=== PATIENT | female | born 1995 | race Caucasian/White ===

== ENCOUNTER 2016-12-27 01:41 | Emergency (ER) | payer SELFPAY ==
[~2016-12-27] VITALS: Ht 149.9 cm; Wt 69.5 kg
[2016-12-27 01:44] VITALS: Ht 149.9 cm; Wt 69.5 kg
[2016-12-28] MEDS ORDERED: PRENAT PO (20:14)
[2016-12-28] MEDS ORDERED: FERR134T PO (20:14)
== END 2016-12-27 01:56 | disposition left against medical advice (07) ==
LOC: E/R 01:41
DX: Z53.21 Procedure and treatment not carried out due to patient leaving prior to being seen by health care provider (principal)

== ENCOUNTER 2016-12-27 02:05 | Outpatient (CLI) | payer OTHER ==
[~2016-12-27] VITALS: Ht 149.9 cm; Wt 69.2 kg
--- NOTE | 2016-12-27 02:26 | PN ---
Date/Time of Note Date/Time of Note DATE: 12/27/16 TIME: 02:17 OB Subjective Subjective Subjective 21 yo P0 @ 33 wks, presents w swelling and elevated BP (she was told this in clinic) and SOB good FM, no VB, no LOF, no ctx OB Objective Objective Objective VS: BP 147/90, 98 Abdomen- gravid, n/t SVE- deferred FHT- 130's; cat I [place]- no ctx Abdomen: WNL Heart Rate: 130's Accelerations: Accelerations Present Decelerations: No Decelerations Contractions on Admission: None OB Assessment/Plan Other Assessment: 21 yo P0 @ 33 wks, r/o PIH Other plan: continue to monitor BP's send PIH labs pulse ox to evaluate SOB, although patient stated this resolved ALIYAH GALLAGHER MD December 27, 2016 02:26
[2016-12-27 02:45] VITALS: Ht 149.9 cm; Wt 69.2 kg
[2016-12-27 02:48] LABS: ADD SCAN DIFF NO
[2016-12-27 02:51] LABS: BASOPHILS % 0.2 % (0.0-2.0); EOSINOPHILS # 0.3 10^3/ul (0.0-0.5); EOSINOPHILS % 3.1 % (0.0-7.0); HEMATOCRIT 33.4 % (37.0-47.0); HEMOGLOBIN 10.5 g/dl (12.0-16.0); LYMPHOCYTES # 2.5 10^3/ul (0.8-2.9); LYMPHOCYTES % 29.8 % (18.0-55.0); MEAN CORPUSCULAR HGB CONC 31.4 g/dl (32.0-37.0); MEAN CORPUSCULAR VOLUME 79.5 fl (72.0-104.0); MEAN PLATELET VOLUME 11.6 fl (7.4-10.4); MONOCYTE # 0.7 10^3/ul (0.3-0.9); MONOCYTES % 8.3 % (0.0-13.0); NEUTROPHIL # 4.9 10^3/ul (1.6-7.5); NEUTROPHILS % 58.1 % (30.0-74.0); PLATELET COUNT 220 10^3/UL (140-415); RED CELL DISTRIBUTION WIDTH 13.8 % (11.5-14.5); WHITE BLOOD COUNT 8.5 10^3/ul (4.8-10.8)
[2016-12-27 02:58] LABS: ADD UMIC YES; URINE BILIRUBIN (Dip) NEGATIVE (NEGATIVE); URINE BLOOD (Dip) 1+ (NEGATIVE); URINE COLOR LT. YELLOW (YELLOW); URINE GLUCOSE (Dip) NEGATIVE (NEGATIVE); URINE KETONES (Dip) NEGATIVE (NEGATIVE); URINE LEUKOCYTE ESTERASE (Dip) TRACE (NEGATIVE); URINE NITRITE (Dip) NEGATIVE (NEGATIVE); URINE TOTAL PROTEIN (Dip) 4+ (NEGATIVE); URINE UROBILINOGEN (Dip) 0.2 E.U./dL (0.1-1.0)
[2016-12-27 03:09] LABS: BACTERIA,URINE FEW; SQUAMOUS EPITHELIAL CELL,UR MANY
[2016-12-27 03:14] LABS: ALBUMIN 2.7 g/dl (3.3-4.9)
[2016-12-27 03:15] LABS: POTASSIUM 3.8 mmol/L (3.5-5.1)
[2016-12-27 03:17] LABS: ALBUMIN/GLOBULIN RATIO 0.84; BILIRUBIN,INDIRECT 0.2 mg/dl (0-1.1); BILIRUBIN,TOTAL 0.2 mg/dl (0.2-1.3); CREATININE 0.57 mg/dl (0.44-1.00); TOTAL PROTEIN 5.9 g/dl (6.1-8.1)
[2016-12-27 03:18] LABS: CALCIUM 8.4 mg/dl (8.4-10.2); INR 1.15; PROTIME 14.7 Sec (12.2-14.2); PT RATIO 1.1; URIC ACID 5.4 mg/dl (3.1-7.9)
[2016-12-27 03:19] LABS: PARTIAL THROMBOPLASTIN TIME 29.7 Sec (25.0-35.0)
--- NOTE | 2016-12-27 04:36 | TRIAGE ---
OB Triage Datetime Report Generated by CPN: 12/27/2016 04:35 Datetime: 12/27/2016 04:22 Stage of : OB Triage Datetime: 12/27/2016 04:11 Stage of : OB Triage Datetime: 12/27/2016 04:00 Labor Evaluation Frequency: NONE Monitor Mode: External Duration (sec)2399: NONE Pattern: Normal: <= 5 Contractions in 10 Minutes Heart Rate FHR Baseline Rate: 135 Monitor Mode: External US FHR Baseline Changes: No Baseline Change Variability: Moderate 6-25 bpm Decelerations: None Category: Category I Datetime: 12/27/2016 03:12 Vaginal Exam Membrane Status: Intact Datetime: 12/27/2016 03:00 Labor Evaluation Frequency: NONE Monitor Mode: External Duration (sec)2399: NONE Pattern: Normal: <= 5 Contractions in 10 Minutes Heart Rate FHR Baseline Rate: 145 Monitor Mode: External US FHR Baseline Changes: No Baseline Change Variability: Moderate 6-25 bpm Accelerations: 10X10 Category: Category I Datetime: 12/27/2016 02:49 Assessment Type: Triage EGA: 33.1 Maternal Assessment Level of Consciousness: Fully Conscious Headache: Denies Blurred Vision: No Respiratory Effort: Unlabored; Regular Rhythm; Equal Expansion Breath Sounds, Left: Clear and Equal Breath Sounds, Right: Clear and Equal Nausea/Vomiting: Denies RUQ Epigastric Pain: Denies Lower Extremities Edema: Bilateral Lower Extremities Degree: 2+ Upper Extremities Edema: None Facial Edema: 1+ (Annotations: PT. ALSO RECOGNIZES THAT SHE HAS FACIAL SWELLING) Fall Risk Assessment History of Falling: (0) No Secondary Diagnosis: (0) No Ambulatory Aid: (0) Bedrest/Nurse Assist IV Therapy: (0) No Gait: (0) Normal/Bedrest/Immobile Mental Status: (0) Oriented to Own Ability Fall Score: 0 Fall Risk Score Definition: No Risk: No action required Datetime: 12/27/2016 02:48 Time of Arrival: 12/27/2016 02:00 Arrived By: Wheelchair Arrived From: Home Chief Complaint: SOB X3DAYS FACIAL SWELLING Movement: Present Contractions: Denies/Absent Rupture of Membranes: Denies Vaginal Bleeding: None Vaginal Discharge: Denies Recent Sexual Intercouse: Denies Abdominal Trauma: Not Applicable Patient Complaints: Facial Edema; Pain on Urination; Shortness of Breath Additional Patient Complaints: PAIN WITH URINATION Time Provider Notified: 12/27/2016 02:14 Provider Notified: AILEEN Initial Plan: EFM, CALL OB, LABS Datetime: 12/27/2016 02:14 Stage of : OB Triage
[2016-12-28] MEDS ORDERED: PRENAT PO (20:14)
[2016-12-28] MEDS ORDERED: FERR134T PO (20:14)
== END 2016-12-27 04:35 | disposition home or self-care (01) ==
LOC: OBT 02:05 → L-D 02:05 → OBT 04:35
PROVIDERS: ATTEND Obstetrics & Gynecology
DX: O26.893 Other specified pregnancy related conditions, third trimester (principal); R03.0 Elevated blood-pressure reading, without diagnosis of hypertension; R60.9 Edema, unspecified; R06.02 Shortness of breath; Z3A.33 33 weeks gestation of pregnancy
CPT/HCPCS: 36415; 80053; 81001; 84560; 85025; 85384; 85610; 85730; Z7500; 81003; G0463

== ENCOUNTER 2016-12-27 12:27 | Outpatient (CLI) | payer OTHER ==
[~2016-12-27] VITALS: Ht 149.9 cm; Wt 68.9 kg
--- NOTE | 2016-12-27 13:07 | RADRPT ---
PROCEDURE: US OB biophysical profile. CLINICAL INDICATION: Hypertension TECHNIQUE: Multiple sonographic images of the pelvis were obtained. The images were reviewed on a PACS workstation. COMPARISON: None FINDINGS: Presentation: Cephalic Cardiac activity is present with 161 beats per minute. The placenta is posterior grade 1. MVP: 4.74 cm Amniotic fluid index: 14 cm Biophysical profile: movement 2/2 tone 2/2. breathing 2/2 JEAN CLAUDE 2/2 Total 03/25 IMPRESSION: 1. Normal biophysical profile. RPTAT:AAJJ . Physician Gillian Date Time Electronically viewed and signed by Physician Gillian on 12/27/2016 13:06 /
[2016-12-27 13:43] LABS: ADD SCAN DIFF NO
[2016-12-27 13:47] LABS: BASOPHILS % 0.1 % (0.0-2.0); EOSINOPHILS # 0.1 10^3/ul (0.0-0.5); EOSINOPHILS % 0.7 % (0.0-7.0); HEMOGLOBIN 9.7 g/dl (12.0-16.0); LYMPHOCYTES # 1.4 10^3/ul (0.8-2.9); LYMPHOCYTES % 16.6 % (18.0-55.0); MEAN CORPUSCULAR HEMOGLOBIN 24.7 pg (29.0-33.0); MEAN CORPUSCULAR HGB CONC 31.3 g/dl (32.0-37.0); MEAN CORPUSCULAR VOLUME 78.9 fl (72.0-104.0); MEAN PLATELET VOLUME 11.7 fl (7.4-10.4); MONOCYTE # 0.6 10^3/ul (0.3-0.9); MONOCYTES % 6.6 % (0.0-13.0); NEUTROPHIL # 6.3 10^3/ul (1.6-7.5); NEUTROPHILS % 75.4 % (30.0-74.0); PLATELET COUNT 207 10^3/UL (140-415); RED BLOOD COUNT 3.93 10^6/ul (4.20-5.40); RED CELL DISTRIBUTION WIDTH 13.9 % (11.5-14.5); WHITE BLOOD COUNT 8.3 10^3/ul (4.8-10.8)
[2016-12-27 13:58] LABS: ALBUMIN 2.5 g/dl (3.3-4.9)
[2016-12-27 13:59] LABS: POTASSIUM 3.8 mmol/L (3.5-5.1)
[2016-12-27 14:01] LABS: ALBUMIN/GLOBULIN RATIO 0.86; BILIRUBIN,INDIRECT 0.2 mg/dl (0-1.1); BILIRUBIN,TOTAL 0.2 mg/dl (0.2-1.3); CREATININE 0.55 mg/dl (0.44-1.00); INR 1.15; PROTIME 14.7 Sec (12.2-14.2); PT RATIO 1.1; TOTAL PROTEIN 5.4 g/dl (6.1-8.1)
[2016-12-27 14:02] LABS: CALCIUM 8.3 mg/dl (8.4-10.2); PARTIAL THROMBOPLASTIN TIME 30.2 Sec (25.0-35.0); URIC ACID 5.9 mg/dl (3.1-7.9)
[2016-12-27 14:11] LABS: URINE BLOOD (Dip) POC 2+ (NEGATIVE)
--- NOTE | 2016-12-27 14:20 | CONS ---
Date/Time of Note Date/Time of Note DATE: 12/27/16 TIME: 14:17 Assessment/Plan Assessment/Plan Additional Assessment/Plan 21 y/o at 33w 1d with elevated BPs and pih symptoms -serial BPs -pih labs -f/u results -consider restarting 24 hour urine Consultation Date/Type/Reason Admit Date/Time Reason for Consultation High BPs Hx of Present Illness 21 y/o at 33w 1d sent from clinic for elevated BPs to systolic of 150s per patient. Also reports visual changes and midepigastric pain earlier today that resolved. Denies any HAs. Patient already instructed to do 24 hour urine from clinic, but did not bring container with her. Denies LOF, VB, UCs, dysuria. + FM. Per HPI. Other systems negative. Past Medical History Medical History: no pertinent history Past Surgical History Past Surgical Hx: no surgical history Social History Denies habits. Exam/Review of Systems Exam Gen: NAD HEENT: NCAT CV: RRR Pulm: CTAB Abd: gravid, NT Back: no CVAT Ext: NT FHT: reactive [place]: no UCs Results Result Diagram: 12/27/16 1320 12/27/16 1320 Results 24 hrs Laboratory Tests Test 12/27/16 13:20 12/27/16 14:13 White Blood Count 8.3 Red Blood Count 3.93 L Hemoglobin 9.7 L Hematocrit 31.0 L Mean Corpuscular Volume 78.9 Mean Corpuscular Hemoglobin 24.7 L Mean Corpuscular Hemoglobin Concent 31.3 L Red Cell Distribution Width 13.9 Platelet Count 207 Mean Platelet Volume 11.7 H Neutrophils % 75.4 H Lymphocytes % 16.6 L Monocytes % 6.6 Eosinophils % 0.7 Basophils % 0.1 Nucleated Red Blood Cells % 0.0 Neutrophils # 6.3 Lymphocytes # 1.4 Monocytes # 0.6 Eosinophils # 0.1 Basophils # 0.0 Nucleated Red Blood Cells # 0.0 Prothrombin Time 14.7 H Prothrombin Time Ratio 1.1 INR International Normalized Ratio 1.15 Activated Partial Thromboplast Time 30.2 Fibrinogen 370.0 Plasma Fibrin Degradation Products Pending Sodium Level 137 Potassium Level 3.8 Chloride Level 109 Carbon Dioxide Level 21 Anion Gap 11 Blood Urea Nitrogen 11 Creatinine 0.55 Glucose Level 100 Uric Acid 5.9 Calcium Level 8.3 L Total Bilirubin 0.2 Direct Bilirubin 0.00 Indirect Bilirubin 0.2 Aspartate Amino Transf (AST/SGOT) 18 Alanine Aminotransferase (ALT/SGPT) 25 Alkaline Phosphatase 112 Total Protein 5.4 L Albumin 2.5 L Globulin 2.90 Albumin/Globulin Ratio 0.86 Bedside Urine pH (LAB) 6.0 Bedside Urine Protein (LAB) 3+ H Bedside Urine Glucose (UA) Negative Bedside Urine Ketones (LAB) 1+ H Bedside Urine Blood 2+ H Bedside Urine Nitrite (LAB) Negative Bedside Urine Leukocyte Esterase (L Negative IBIS GARCIA December 27, 2016 14:20
[2016-12-27 14:25] VITALS: BP 123/68; PULSE 70; RESP 24; Ht 149.9 cm; Wt 68.9 kg
[2016-12-27 14:31] LABS: FIBRIN SPLIT PRODUCT <10 ug/ml (<10)
--- NOTE | 2016-12-27 16:54 | TRIAGE ---
OB Triage Datetime Report Generated by CPN: 12/27/2016 16:54 Datetime: 12/27/2016 15:37 Labor Evaluation Frequency: 0 Monitor Mode: External Duration (sec)2399: 0 Resting Tone [place]: Relaxed Contraction Comments: PT DENIES UC'S N UC'S NOTED AT THIS TIME Heart Rate FHR Baseline Rate: 135 Monitor Mode: External US Variability: Moderate 6-25 bpm Accelerations: 15X15 Decelerations: None Category: Category I Datetime: 12/27/2016 15:00 Labor Evaluation Frequency: 0 Monitor Mode: External Duration (sec)2399: 0 Resting Tone [place]: Relaxed Heart Rate FHR Baseline Rate: 135 Monitor Mode: External US Variability: Moderate 6-25 bpm Accelerations: 15X15 Decelerations: None Datetime: 12/27/2016 14:03 Comments: nst reactive for gestational age Datetime: 12/27/2016 14:02 Labor Evaluation Frequency: 0 Monitor Mode: External Duration (sec)2399: 0 Pattern: Normal: <= 5 Contractions in 10 Minutes Resting Tone [place]: Relaxed Contraction Comments: pt denies uc's no uc's noted at this time Heart Rate FHR Baseline Rate: 145 Monitor Mode: External US Variability: Moderate 6-25 bpm Accelerations: 15X15 Decelerations: None Category: Category I Datetime: 12/27/2016 13:32 Stage of : OB Triage Datetime: 12/27/2016 13:00 Labor Evaluation Frequency: 0 Monitor Mode: External Duration (sec)2399: 0 Resting Tone [place]: Relaxed Heart Rate FHR Baseline Rate: 145 Monitor Mode: External US Variability: Moderate 6-25 bpm Accelerations: 15X15 Decelerations: None Datetime: 12/27/2016 12:42 Stage of : OB Triage Maternal Assessment Level of Consciousness: Fully Conscious DTR's/Clonus: DTRs 2+; No Clonus Headache: Denies Blurred Vision: No Respiratory Effort: Unlabored; Regular Rhythm; Equal Expansion Breath Sounds, Left: Clear and Equal Breath Sounds, Right: Clear and Equal Nausea/Vomiting: Denies RUQ Epigastric Pain: Denies Lower Extremities Edema: Bilateral Lower Extremities Degree: 2+ Upper Extremities Edema: None Degree: None Facial Edema: None Temperature Route: Axillary Fall Risk Assessment History of Falling: (0) No Secondary Diagnosis: (0) No Ambulatory Aid: (0) Bedrest/Nurse Assist IV Therapy: (0) No Gait: (0) Normal/Bedrest/Immobile Mental Status: (0) Oriented to Own Ability Fall Score: 0 Fall Risk Score Definition: No Risk: No action required Datetime: 12/27/2016 12:41 Time of Arrival: 12/27/2016 12:20 EGA: 33.1 Arrived By: Ambulatory Arrived From: Office Chief Complaint: HIGH BP'S Movement: Present Contractions: Denies/Absent Rupture of Membranes: Denies Vaginal Bleeding: None Vaginal Discharge: Denies Recent Sexual Intercouse: Denies Abdominal Trauma: Not Applicable Time Provider Notified: 12/27/2016 13:15 Provider Notified: Dr. Guerrero Initial Plan: NST, PIH LABS,UA Datetime: 12/27/2016 02:49 EGA: 33.1 Fall Score: 0 Fall Risk Score Definition: No Risk: No action required
[2016-12-28] MEDS ORDERED: FERR134T PO (20:14)
[2016-12-28] MEDS ORDERED: PRENAT PO (20:14)
== END 2016-12-27 15:55 | disposition home or self-care (01) ==
LOC: OBT 12:27 → L-D 12:28 → OBT 15:55
PROVIDERS: ATTEND Obstetrics & Gynecology
DX: O26.893 Other specified pregnancy related conditions, third trimester (principal); R03.0 Elevated blood-pressure reading, without diagnosis of hypertension; R10.13 Epigastric pain; Z3A.33 33 weeks gestation of pregnancy
CPT/HCPCS: 76818; 80053; 81003; 84560; 85025; 85362; 85384; 85610; 85730; 96372; Z7500; G0463

== ENCOUNTER 2016-12-28 19:34 | Inpatient (IN) | payer OTHER ==
[~2016-12-28] VITALS: Ht 149.9 cm; Wt 69.8 kg
[2016-12-28 20:10] VITALS: BP 144/87; PULSE 73; RESP 18
[2016-12-28] MEDS ORDERED: FERR134T PO (20:14)
[2016-12-28] MEDS ORDERED: PRENAT PO (20:14)
--- NOTE | 2016-12-28 20:15 | HP ---
Date/Time of Note Date/Time of Note DATE: 12/28/16 TIME: 19:53 OB - History Hx of Present Free Text/Dictation Pt is a 21yo at 33+2 presenting to return a 24hr urine collection. Pt reported she hasn't urinated much over the past 24hrs although she reports drinking a large bottle of water and several glasses of water. C/o visual changes (spots) earlier for a few seconds, which have now resolved. Also felt some epigastric pain on the car ride to triage, although states it is similar to the heartburn she has from time to time. Reports normal FM, denies LOF, VB, UCs, HAYS or RUQ pain. Of note, pt was seen in triage in the [facility] mechanic on 12/27 for swelling, SOB and elevated BPs in clinic. SOB resolved spontaneously. BP on record 140s/90s and labs notable for 4+ protein on Udip. Later the same day, pt was seen again for elevated BPs per pt with SBPs 150s in clinic and pt c/o visual changes. At that time, BP 123/68. Urine notable for 3+ protein (2+ blood). BPP 8/8 and JEAN CLAUDE 14cm. Pt was sent home was 24hr urine collection from clinic which she collected and returned tonight. Estimated Due Date: Feb 13, 2017 : 2 Para: 0 Care: Good Care Obstetrical Complications: Other (Elevated BPs, gHTN vs PreEclampsia) OB Admission Exam Vital Signs Vital Signs T 98 BP 154/87, 146/95, 152/90, 140/86, 144/93, 149/97, 138/89 HR 71-73 R 18 Physical Exam HEENT: WNL Heart: Rhythm Normal Lungs: Clear Abdomen: WNL (gravid, NABS) Extremities: Edema (1+ bilaterally non-pitting) Reflexes: Normal Membranes: Intact Heart Rate: 140's Accelerations: Accelerations Present (10x10) Decelerations: No Decelerations Varibility: Moderate Contractions on Admission: None OB Assessment/Plan Other Assessment: R/o Pre-Eclampsia FWB Reassuring Other plan: Plan to admit to antepartum service for collection of 24hr urine in the setting of low-volume collection (500ml) with >4g protein. 1)R/o PreE: Pt asymptomatic with mild-range BPs and normal PreE labs. However there is a concern for significant proteinuria although given low volume of urine in collection, unsure as to validity of result. Additionally, blood noted in prior U/A thus will r/o concurrent UTI with UCx. -Repeat 24hr urine collection in-house -Monitor BPs -Repeat PreE labs at conclusion of 24hr urine collection -Urine for culture -Will hold on BMZ administration at this time given uncertainty regarding PreE diagnosis. Discussed with pt that if PreE were diagnosed and pt remained without severe features, pt may be expectantly managed. If clinical picture changes and patient begins having severe features, then likely would need earlier delivery, even as early as 34wks and thus would receive a course of BMZ at that time. 2)FWB: Reactive NST -CEFM -BPP and EFW in AM Plan d/w pt. Questions answered to her satisfaction. ANUEL ZHENG MD December 28, 2016 20:05
[2016-12-28 20:20] LABS: ADD UMIC YES; URINE BILIRUBIN (Dip) NEGATIVE (NEGATIVE); URINE BLOOD (Dip) 1+ (NEGATIVE); URINE COLOR LT. YELLOW (YELLOW); URINE GLUCOSE (Dip) NEGATIVE (NEGATIVE); URINE KETONES (Dip) NEGATIVE (NEGATIVE); URINE LEUKOCYTE ESTERASE (Dip) TRACE (NEGATIVE); URINE NITRITE (Dip) NEGATIVE (NEGATIVE); URINE TOTAL PROTEIN (Dip) 4+ (NEGATIVE); URINE UROBILINOGEN (Dip) 0.2 E.U./dL (0.1-1.0)
[2016-12-28 20:26] LABS: ADD SCAN DIFF NO
[2016-12-28 20:29] LABS: BASOPHILS % 0.2 % (0.0-2.0); EOSINOPHILS # 0.2 10^3/ul (0.0-0.5); EOSINOPHILS % 2.6 % (0.0-7.0); HEMATOCRIT 31.7 % (37.0-47.0); HEMOGLOBIN 9.9 g/dl (12.0-16.0); LYMPHOCYTES # 2.2 10^3/ul (0.8-2.9); LYMPHOCYTES % 27.5 % (18.0-55.0); MEAN CORPUSCULAR HEMOGLOBIN 24.6 pg (29.0-33.0); MEAN CORPUSCULAR HGB CONC 31.2 g/dl (32.0-37.0); MEAN CORPUSCULAR VOLUME 78.9 fl (72.0-104.0); MEAN PLATELET VOLUME 11.4 fl (7.4-10.4); MONOCYTE # 0.8 10^3/ul (0.3-0.9); MONOCYTES % 10.2 % (0.0-13.0); NEUTROPHIL # 4.8 10^3/ul (1.6-7.5); PLATELET COUNT 215 10^3/UL (140-415); RED BLOOD COUNT 4.02 10^6/ul (4.20-5.40); RED CELL DISTRIBUTION WIDTH 13.9 % (11.5-14.5); WHITE BLOOD COUNT 8.1 10^3/ul (4.8-10.8)
[2016-12-28 20:38] LABS: INR 1.08; PT RATIO 1.1
[2016-12-28 20:39] LABS: ALBUMIN 2.6 g/dl (3.3-4.9); PARTIAL THROMBOPLASTIN TIME 29.3 Sec (25.0-35.0); POTASSIUM 3.7 mmol/L (3.5-5.1)
[2016-12-28 20:41] LABS: BILIRUBIN,INDIRECT 0.1 mg/dl (0-1.1); BILIRUBIN,TOTAL 0.1 mg/dl (0.2-1.3); CREATININE 0.56 mg/dl (0.44-1.00)
[2016-12-28 20:42] LABS: ALBUMIN/GLOBULIN RATIO 0.86; CALCIUM 8.3 mg/dl (8.4-10.2); TOTAL PROTEIN 5.6 g/dl (6.1-8.1); URIC ACID 6.2 mg/dl (3.1-7.9)
[2016-12-28 20:48] LABS: BACTERIA,URINE FEW; SQUAMOUS EPITHELIAL CELL,UR MODERATE
--- NOTE | 2016-12-28 22:58 | TRIAGE ---
OB Triage Datetime Report Generated by CPN: 12/28/2016 22:58 Datetime: 12/28/2016 20:02 Stage of : OB Triage Maternal Assessment Level of Consciousness: Fully Conscious DTR's/Clonus: DTRs 3+; No Clonus Headache: Denies Blurred Vision: No Respiratory Effort: Unlabored Nausea/Vomiting: Denies RUQ Epigastric Pain: Denies Facial Edema: None Labor Evaluation Frequency: placed Monitor Mode: External Resting Tone [place]: Relaxed Heart Rate Monitor Mode: External US Comments: FHT 145 Pain Assessment Pain Scale: 0 Pain Presence: None/Denies Pain Type: N/A Datetime: 12/28/2016 19:40 Time of Arrival: 12/28/2016 19:31 EGA: 33.2 Arrived By: Ambulatory Chief Complaint: to OB triage for NST following collection of 24hr urine. Movement: Decreased Contractions: Denies/Absent Rupture of Membranes: Denies Vaginal Bleeding: None Vaginal Discharge: Denies Recent Sexual Intercouse: Denies Abdominal Trauma: Not Applicable Patient Complaints: Dependent Edema Time Provider Notified: 12/28/2016 19:31 Provider Notified: Dr Alonso Initial Plan: EFM, PIH labs Datetime: 12/27/2016 12:42 Assessment Type: Triage Fall Risk Assessment Fall Score: 0 Fall Risk Score Definition: No Risk: No action required Datetime: 12/27/2016 12:41 EGA: 33.1 Datetime: 12/27/2016 02:49 EGA: 33.1 Fall Risk Assessment Fall Score: 0 Fall Risk Score Definition: No Risk: No action required
[2016-12-28] MEDS ORDERED: ACETAMINOPHEN 325 MG TAB PO PRN (23:00)
[2016-12-28] MEDS ORDERED: AL HYDROX/MG HYDROX/SIMETH 30 ML CUP PO PRN (23:00)
[2016-12-29] MEDS: NACL 0.9% 3 ML SYG IV SCH ×2 (07:37→14:48)
[2016-12-29] MEDS ORDERED: FERROUS SULFATE (EC) 325 MG TAB PO SCH (09:00)
[2016-12-29] MEDS: MULTIVIT/MIN/FOLATE/IRON/PREN TAB PO SCH (09:22)
--- NOTE | 2016-12-29 09:30 | RADRPT ---
PROCEDURE: OB ultrasound for biophysical profile CLINICAL INDICATION: Biophysical profile. . Preeclampsia TECHNIQUE: Multiple sonographic images of the pelvis were obtained. Transabdominal views are obta ined. COMPARISON: 12/27/2016 FINDINGS: Single intrauterine gestation. Presentation: Cephalic. Placenta: Posterior No evidence of placental abruption. No evidence of placenta previa. breathing movement = 2/2 tone = 2/2 motion = 2/2 JEAN CLAUDE = 2/2 JE[place] = 9.2 cm heart rate: 141 beats per minute IMPRESSION: Single intrauterine gestation. Biophysical profile 03/25 RPTAT: AADD .Chapin Anderson MD, MD Date Time Electronically viewed and signed by .Chapin Anderson MD, on 12/29/2016 09:30 .B/
--- NOTE | 2016-12-29 09:32 | RADRPT ---
PROCEDURE: Obstetrical ultrasound. CLINICAL INDICATION: , evaluation. Pelvic pain. TECHNIQUE: Transabdominal sonographic images of the pelvis are obtained. COMPARISON: OB ultrasound 12/27/2016 FINDINGS: Single intrauterine gestation. There is a cephalic presentation. Measurements were made in order to determine age. The results are as follows: BPD = 8.23 cm HC = 30.14 cm AC = 29.59 cm FL = 6.47 cm Heart rate = 161 beats per minute The placenta is posterior. There is no evidence for an abruption or placenta previa. Ovaries are not visualized. IMPRESSION: Single intrauterine gestation of approximately 33 weeks 3 days by ultrasound criteria. [place] estimated weight = 2199 g; 42 percentile for gestational age of 33 weeks 3 days. RPTAT: AADD .Chapin Anderson MD, Date Time Electronically viewed and signed by .Chapin Anderson MD, MD on 12/29/2016 09:32 .B/
[2016-12-29] MEDS: BETAMET NA PHOS/AC(6 MG/ML) 5ML INJ IM SCH (18:31)
[2016-12-29] MEDS ORDERED: MAGNESIUM SULFATE 4 GM/100 ML 100 ML IVPB ONE (20:00)
[2016-12-29] MEDS ORDERED: MAGNESIUM SULFATE 20 GM/500 ML 500 ML IV SCH (20:00)
[2016-12-29 20:21] LABS: ADD SCAN DIFF NO
[2016-12-29 20:24] LABS: BASOPHILS % 0.2 % (0.0-2.0); EOSINOPHILS # 0.2 10^3/ul (0.0-0.5); EOSINOPHILS % 1.9 % (0.0-7.0); HEMATOCRIT 32.9 % (37.0-47.0); HEMOGLOBIN 10.7 g/dl (12.0-16.0); LYMPHOCYTES # 1.8 10^3/ul (0.8-2.9); LYMPHOCYTES % 21.5 % (18.0-55.0); MEAN CORPUSCULAR HEMOGLOBIN 25.4 pg (29.0-33.0); MEAN CORPUSCULAR HGB CONC 32.5 g/dl (32.0-37.0); MEAN CORPUSCULAR VOLUME 78.1 fl (72.0-104.0); MEAN PLATELET VOLUME 11.9 fl (7.4-10.4); MONOCYTE # 0.7 10^3/ul (0.3-0.9); MONOCYTES % 7.8 % (0.0-13.0); NEUTROPHIL # 5.7 10^3/ul (1.6-7.5); NEUTROPHILS % 67.9 % (30.0-74.0); PLATELET COUNT 214 10^3/UL (140-415); RED BLOOD COUNT 4.21 10^6/ul (4.20-5.40); RED CELL DISTRIBUTION WIDTH 13.9 % (11.5-14.5); WHITE BLOOD COUNT 8.4 10^3/ul (4.8-10.8)
--- NOTE | 2016-12-29 20:26 | PN ---
Date/Time of Note Date/Time of Note DATE: 12/29/16 TIME: 20:11 OB Subjective Subjective Subjective Laborist Note: she denies headaches, visual changes or RUQ pain. she reports good FM. she denies UCs or VB or LOF per vagina. she reports elevated BP about 3 weeks in PNC clinic. she was seen at L&D 2 days for PIH evaluation. she was discharged home and asked to collect her urine for 24 hrs. she returned yesterday. Total volume was low at 600 and had > 4000 mg protein. labs were normal. she continues to have mild range BPs. repeat 24 hr urine was started last pm. steroids started today pm. OB Objective Objective Objective 156/93 NAD Abdomen is soft and gravid and not tender ext: 2+ edema NST: category one OB Assessment/Plan Other Assessment: IUP 33.3 weeks PIH. nephrotic syndrome proteinuria. Low UOP is a severe feature. Other plan: I discussed with patient the risks and benefits of prolonging the . possible risks including renal failure, seizures, stroke, abruption, blindness and DIC d/w pt. Risks of prematurity also d/w pt. the benefits of steroids d/w pt. At this time. patient agrees to prolong the to give the baby benefit of steroids at this time. will start lower dose Magnesium sulfate and repeat PIH labs Q 12 hrs. perinatology and Neonatology consults in am. MUKUL WANG MD December 29, 2016 20:23
[2016-12-29 20:38] LABS: INR 1.12; PROTIME 14.4 Sec (12.2-14.2); PT RATIO 1.1
[2016-12-29 20:39] LABS: PARTIAL THROMBOPLASTIN TIME 30.3 Sec (25.0-35.0)
[2016-12-29 20:43] LABS: ALBUMIN 2.6 g/dl (3.3-4.9); POTASSIUM 3.9 mmol/L (3.5-5.1)
[2016-12-29 20:45] LABS: CREATININE 0.55 mg/dl (0.44-1.00)
[2016-12-29 20:46] LABS: ALBUMIN/GLOBULIN RATIO 0.81; BILIRUBIN,INDIRECT 0.1 mg/dl (0-1.1); BILIRUBIN,TOTAL 0.1 mg/dl (0.2-1.3); CALCIUM 8.4 mg/dl (8.4-10.2); TOTAL PROTEIN 5.8 g/dl (6.1-8.1); URIC ACID 5.9 mg/dl (3.1-7.9)
[2016-12-29] MEDS: LACTATED RINGER'S 1,000 ML IV SCH ×2 (21:11→21:21)
[2016-12-30] VITALS (11 sets, daily range): BP systolic 117–142; BP diastolic 66–92; PULSE 65–91; RESP 17–20
[2016-12-30] MEDS ORDERED: CA GLUCONATE (GM) 10% 10ML INJ IV PRN (03:00)
[2016-12-30 03:49] LABS: SCRET 0.55 mg/dl (0.44-1.00)
[2016-12-30 08:21] LABS: ADD SCAN DIFF NO
[2016-12-30 08:29] LABS: BASOPHILS % 0.1 % (0.0-2.0); HEMATOCRIT 33.7 % (37.0-47.0); HEMOGLOBIN 10.5 g/dl (12.0-16.0); LYMPHOCYTES # 1.4 10^3/ul (0.8-2.9); LYMPHOCYTES % 13.3 % (18.0-55.0); MEAN CORPUSCULAR HEMOGLOBIN 24.6 pg (29.0-33.0); MEAN CORPUSCULAR HGB CONC 31.2 g/dl (32.0-37.0); MEAN CORPUSCULAR VOLUME 79.1 fl (72.0-104.0); MONOCYTE # 0.4 10^3/ul (0.3-0.9); MONOCYTES % 3.4 % (0.0-13.0); NEUTROPHIL # 8.7 10^3/ul (1.6-7.5); NEUTROPHILS % 82.3 % (30.0-74.0); PLATELET COUNT 220 10^3/UL (140-415); RED BLOOD COUNT 4.26 10^6/ul (4.20-5.40); RED CELL DISTRIBUTION WIDTH 14.3 % (11.5-14.5); WHITE BLOOD COUNT 10.6 10^3/ul (4.8-10.8)
[2016-12-30 08:52] LABS: ALBUMIN 2.7 g/dl (3.3-4.9)
[2016-12-30 08:53] LABS: POTASSIUM 4.2 mmol/L (3.5-5.1)
[2016-12-30 08:55] LABS: ALBUMIN/GLOBULIN RATIO 0.84; CREATININE 0.51 mg/dl (0.44-1.00); TOTAL PROTEIN 5.9 g/dl (6.1-8.1); URIC ACID 5.8 mg/dl (3.1-7.9)
[2016-12-30 08:56] LABS: CALCIUM 8.4 mg/dl (8.4-10.2)
[2016-12-30] MEDS: MULTIVIT/MIN/FOLATE/IRON/PREN TAB PO SCH (09:00)
[2016-12-30] MEDS: BETAMET NA PHOS/AC(6 MG/ML) 5ML INJ IM SCH (09:24)
[2016-12-30] MEDS ORDERED: CEFAZOLIN 2 GM/50 ML (PMX) 50 ML IV SCH (10:00)
[2016-12-30] MEDS ORDERED: CARBOPROST 250 MCG INJ IM PRN ×2 (10:00→15:00)
[2016-12-30] MEDS ORDERED: METHYLERGONOVINE 0.2 MG INJ IM PRN (10:00)
[2016-12-30] MEDS ORDERED: OXYTOCIN 30 UNITS/LR 500 ML IV PRN ×2 (10:00→15:00)
[2016-12-30] MEDS ORDERED: MISOPROSTOL 200 MCG TAB PR PRN ×2 (10:00→15:00)
[2016-12-30 10:17] LABS: INR 1.09; PARTIAL THROMBOPLASTIN TIME 28.8 Sec (25.0-35.0); PROTIME 14.1 Sec (12.2-14.2); PT RATIO 1.1
[2016-12-30 10:22] LABS: FIBRIN SPLIT PRODUCT <10 ug/ml (<10)
[2016-12-30] MEDS ORDERED: CITRIC ACID/SODIUM CITRATE 15 ML CUP ONE ×2 (10:27→10:29)
[2016-12-30] MEDS ORDERED: METOCLOPRAMIDE 10 MG INJ ONE (10:30)
[2016-12-30] MEDS ORDERED: ONDANSETRON 4 MG INJ ONE (10:41)
[2016-12-30] MEDS ORDERED: morphine SULFATE/PF (10 MG/10 ML) INJ ONE (10:41)
[2016-12-30] MEDS ORDERED: KETOROLAC 30 MG INJ ONE (10:41)
[2016-12-30] MEDS ORDERED: FENTAnyl 50 MCG/ML VIAL ONE (11:07)
[2016-12-30 11:41] LABS: CBV COHb 0.9 %; CBV Oxygen Sat 52.3 mmHG; CBV Total Hemglobin 16.6 g/dl; Cord Blood Venous AADO2 75.5 mmHg; Cord Blood Venous pO2 23.6 mmHG (15.0-45.0); MODE ROOM AIR; MetHgb Cord Venous 1.6 %; Sample Type CBV
[2016-12-30 11:43] LABS: AADO2 Cord Arterial 69.4 mmHg; Arterial Cord Blood pCO2 56.2 mmHG (25-50); CBA Base Excess -2.9 mmol/L; CBA Oxygen Sat 18.3 mmHG; CBA Total Hemglobin 15.4 g/dl; Fraction OxyHgb Cord Arterial 17.9 %; MODE ROOM AIR; MetHgb Cord Arterial 2.1 %; Sample Type CBA
[2016-12-30] MEDS ORDERED: HYDROmorphONE (0.2 MG/ML) 10ML SYG IV PRN ×3 (12:00)
[2016-12-30] MEDS ORDERED: ONDANSETRON 4 MG INJ IV PRN ×2 (12:00)
[2016-12-30] MEDS ORDERED: NALOXONE (0.4 MG/ML) INJ IV PRN (12:00)
[2016-12-30] MEDS ORDERED: HYDROmorphONE 1 MG/ML SYG IV PRN ×3 (12:00)
[2016-12-30] MEDS ORDERED: METOCLOPRAMIDE 10 MG INJ IV PRN (12:00)
[2016-12-30] MEDS ORDERED: DIPHENHYDRAMINE 50 MG INJ IV PRN ×2 (12:00)
[2016-12-30] MEDS ORDERED: MEPERIDINE 25 MG INJ IV PRN (12:00)
[2016-12-30] MEDS: KETOROLAC 30 MG INJ IV PRN (13:55)
--- NOTE | 2016-12-30 14:07 | OPR ---
DATE OF OPERATION: PREOPERATIVE DIAGNOSES: 1. Intrauterine at 33 and 4/7 weeks. 2. Severe preeclampsia with symptomatic patient. POSTOPERATIVE DIAGNOSIS:. 1. Intrauterine at 33 and 4/7 weeks. 2. Severe preeclampsia with symptomatic patient. PROCEDURE: Primary low transverse section. SURGEON: Yohan Wood MD ANESTHESIA: Dr. Jones FINDINGS: 1. A viable infant. 2. Normal ovaries and tubes. COMPLICATIONS: None. ESTIMATED BLOOD LOSS: 600. SPECIMENS: Cord gases and placenta. INDICATIONS: The patient is a 21-year-old, G2, P0 who presented at 33 and 2/7 weeks with elevated b lood pressures and proteinuria and patient symptomatic. The patient was admitted and received betam ethasone, magnesium. On 01/02/2017, the patient's symptoms worsened and blood pressure worsened. A consult with was done and it was decided that the patient would be delivered via sec tion due to the fact of the high blood pressure, severe preeclampsia with severe features. Risks an d benefits discussed. The risk of infection, bleeding, damage to organs, possibility of blood trans fusion all discussed with patient. The patient understood the risks and consents to the procedure. DESCRIPTION OF PROCEDURE: The patient was taken to the operating room where spinal was found to be adequate. Patient was then prepped, draped in normal sterile fashion. Identity was confirmed. Usi ng a scalpel, a Pfannenstiel incision made, incision taken to underlying fascia. The fascia nicked in the midline and extended laterally in both directions using the Huntley scissors. Fascia was taken off the rectus muscle superiorly. Midline identified and entered bluntly. Incision was extended evangelista periorly and inferiorly. Bladder blade . A low segment incision made on the uterus. Uterine incision was extended with manual extension. Infant was then delivered atraumatically, bulb suctioned at the peritoneum, 30 seconds of a delayed cord clamping was performed. Cord cut and clamped. Cord gases taken. Placenta delivered and sent to pathology. The uterus was cleaned thoroughly with 2 dry cloths. Uterine incision was closed wit h 0-Monocryl in running fashion. A second imbricating layer was also placed. The uterus placed leigh k in abdominal cavity. The gutters were cleared of all blood clots and debris. On second look, the uterine incision was clean, dry and intact. The rectus muscles and the peritoneum were brought tog ether in the midline using a 2-0 Vicryl. The fascia was closed with 0 Vicryl. Subcutaneous fat was closed with a 2-0 plain, skin was closed with dez. The patient tolerated the procedure well. Lap and needle counts were correct x2. Patient stable to recovery. Dictated By: YOHAN WOOD MD /MAYI Conf#: [id number] DID#: [id number]
[2016-12-30] MEDS: MAGNESIUM SULFATE 20 GM/500 ML 500 ML IV SCH (14:47)
[2016-12-30] MEDS: OXYTOCIN 30 UNITS/LR 500 ML IV SCH ×2 (14:48→18:34)
[2016-12-30] MEDS ORDERED: ACETAMINOPHEN/CODEINE #3 TAB PO PRN (15:00)
[2016-12-30] MEDS ORDERED: LANOLIN 7 GM TUBE TOP PRN (15:00)
[2016-12-30 18:59] LABS: ADD SCAN DIFF NO
[2016-12-30 19:01] LABS: BASOPHILS % 0.2 % (0.0-2.0); HEMATOCRIT 34.8 % (37.0-47.0); HEMOGLOBIN 10.9 g/dl (12.0-16.0); LYMPHOCYTES # 1.5 10^3/ul (0.8-2.9); LYMPHOCYTES % 7.2 % (18.0-55.0); MEAN CORPUSCULAR HEMOGLOBIN 24.9 pg (29.0-33.0); MEAN CORPUSCULAR HGB CONC 31.3 g/dl (32.0-37.0); MEAN CORPUSCULAR VOLUME 79.5 fl (72.0-104.0); MEAN PLATELET VOLUME 12.2 fl (7.4-10.4); MONOCYTE # 1.3 10^3/ul (0.3-0.9); MONOCYTES % 6.4 % (0.0-13.0); NEUTROPHIL # 17.5 10^3/ul (1.6-7.5); NEUTROPHILS % 85.4 % (30.0-74.0); PLATELET COUNT 246 10^3/UL (140-415); RED BLOOD COUNT 4.38 10^6/ul (4.20-5.40); RED CELL DISTRIBUTION WIDTH 14.2 % (11.5-14.5); WHITE BLOOD COUNT 20.5 10^3/ul (4.8-10.8)
--- NOTE | 2016-12-30 19:36 | HP ---
DATE OF ADMISSION: 12/28/2016 HISTORY OF PRESENT ILLNESS: The patient is a 21-year-old G2, P0 presented at 33-1/2 weeks originall y on 12/28/2016 for evaluation of preeclampsia. The patient was admitted for observation. Over the course of the stay her preeclamptic condition has gotten worse, higher blood pressure and patient c omplaining of dizziness, epigastric pain and other symptoms. Blood pressure has also been in the se chidi range and high proteinuria. Discussion had with the [facility] regarding the patient's condition and Dr. Gamez has instructed the patient to be delivered via section due to the fact that the p atient is severely preeclamptic and is having symptoms. PAST MEDICAL HISTORY: None. PAST SURGICAL HISTORY: None. PHYSICAL EXAMINATION: VITAL SIGNS: Blood pressure has been 150s/90s. A 24-hour urine was greater than 6600. Exam within normal limits. ASSESSMENT: Intrauterine 33-1/2 weeks with severe preeclampsia with the patient symptomat ic. PLAN: Deliver via section. Risks and benefits discussed. Risks of infection, bleeding, d amage to organs, possible blood transfusion are discussed with the patient. The patient understood the risks and consented to the procedure. Dictated By: YOHAN VERDUGO MD /NTS Conf#: [id number] DID#: [id number]
[2016-12-30] MEDS: LACTATED RINGER'S 1,000 ML IV SCH (20:28)
[2016-12-31] VITALS (12 sets, daily range): BP systolic 112–144; BP diastolic 61–90; PULSE 66–90; RESP 16–18
[2016-12-31 03:17] LABS: ADD SCAN DIFF NO
[2016-12-31 03:40] LABS: BASOPHILS % 0.1 % (0.0-2.0); HEMOGLOBIN 9.1 g/dl (12.0-16.0); LYMPHOCYTES # 1.4 10^3/ul (0.8-2.9); LYMPHOCYTES % 8.3 % (18.0-55.0); MEAN CORPUSCULAR HEMOGLOBIN 24.9 pg (29.0-33.0); MEAN CORPUSCULAR HGB CONC 31.4 g/dl (32.0-37.0); MEAN CORPUSCULAR VOLUME 79.2 fl (72.0-104.0); MEAN PLATELET VOLUME 11.7 fl (7.4-10.4); MONOCYTE # 1.3 10^3/ul (0.3-0.9); MONOCYTES % 7.6 % (0.0-13.0); NEUTROPHIL # 14.5 10^3/ul (1.6-7.5); NEUTROPHILS % 83.2 % (30.0-74.0); PLATELET COUNT 223 10^3/UL (140-415); RED BLOOD COUNT 3.66 10^6/ul (4.20-5.40); RED CELL DISTRIBUTION WIDTH 14.2 % (11.5-14.5); WHITE BLOOD COUNT 17.4 10^3/ul (4.8-10.8)
[2016-12-31] MEDS: KETOROLAC 30 MG INJ IV PRN (04:38)
[2016-12-31] MEDS: LACTATED RINGER'S 1,000 ML IV SCH ×3 (06:34→14:34)
[2016-12-31] MEDS: MULTIVIT/MIN/FOLATE/IRON/PREN TAB PO SCH (09:09)
[2016-12-31] MEDS: MAGNESIUM SULFATE 20 GM/500 ML 500 ML IV SCH (09:12)
--- NOTE | 2016-12-31 10:05 | PN ---
Date/Time of Note Date/Time of Note DATE: 12/31/16 TIME: 10:01 OB Subjective Subjective Subjective Afebrile , blood pressures are 130s over 80s patient has no complaint of headache blurry vision or epigastric pain her ankles are still 2+ edema magnesium sulfate will be stopped after 24 hours from the start abdomen soft bowel sounds present lochia moderate ambulation with caution encouraged. CHRIS MA MD December 31, 2016 10:04
[2016-12-31] MEDS: IBUPROFEN 800 MG TAB PO SCH ×2 (13:13→21:33)
[2016-12-31] MEDS: ACETAMINOPHEN/CODEINE #3 TAB PO PRN (15:17)
--- NOTE | 2016-12-31 18:45 | PN ---
Date/Time of Note Date/Time of Note DATE: 12/31/16 TIME: 18:43 Assessment/Plan VTE Prophylaxis VTE Prophylaxis Intervention: ambulation Lines/Catheters IV Catheter Type (from Nrsg): Saline Lock Subjective 24 Hr Interval Summary Free Text/Dictation anesthesia note: A 21 year female s/p duramprph foe post op pain, pod #1 is doing well, no itching, headache, n/v, pain is controlled. back is clean. care per surgery team. Exam/Review of Systems Vital Signs Vitals Vital Signs Date Time Temp Pulse Resp B/P Pulse Ox O2 Delivery O2 Flow Rate FiO2 12/31/16 15:26 98.6 81 16 128/80 Room Air 12/30/16 18:00 94 Intake and Output 12/30/16 12/30/16 12/31/16 15:00 23:00 07:00 Intake Total 520 ml 200 ml Output Total 625 ml 395 ml 500 ml Balance -105 ml -195 ml -500 ml Results Result Diagram: 12/31/16 0310 12/30/16 0815 Results 24 hrs Laboratory Tests Test 12/30/16 20:50 12/31/16 03:10 12/31/16 09:47 Magnesium Level 4.9 H 4.8 H 4.9 H White Blood Count 17.4 H Red Blood Count 3.66 L Hemoglobin 9.1 L Hematocrit 29.0 L Mean Corpuscular Volume 79.2 Mean Corpuscular Hemoglobin 24.9 L Mean Corpuscular Hemoglobin Concent 31.4 L Red Cell Distribution Width 14.2 Platelet Count 223 Mean Platelet Volume 11.7 H Neutrophils % 83.2 H Lymphocytes % 8.3 L Monocytes % 7.6 Eosinophils % 0.0 Basophils % 0.1 Nucleated Red Blood Cells % 0.0 Neutrophils # 14.5 H Lymphocytes # 1.4 Monocytes # 1.3 H Eosinophils # 0.0 Basophils # 0.0 Nucleated Red Blood Cells # 0.0 Medications Medications Current Medications Lactated Ringer's (Lr) 1,000 ml @ 125 mls/hr Q8H IV Last administered on 06:35; Admin Dose 125 MLS/HR; Start 12/30/16 at 14:34 Acetaminophen/ Codeine Phosphate (Tylenol No.3) 1 tab Q4H PRN PO PAIN LEVEL 4- 6 Last administered on 12/31/16 15:17; Admin Dose 1 TAB; Start 12/30/16 at 15: 00 Acetaminophen/ Codeine Phosphate (Tylenol No.3) 2 tab Q4H PRN PO PAIN LEVEL 7- 10; Start 12/30/16 at 15:00 Ibuprofen (Motrin) 800 mg Q8 PO Last administered on 12/31/16 13:13; Admin Dose 800 MG; Start 12/31/16 at 14:00 Simethicone 160 mg 160 mg Q8H PRN PO DISTENSION/GAS/BLOATING; Start 12/30/16 at 15:00 Oxytocin/Lactated Ringer's 500 ml @ 0 mls/hr ONCE PRN IV For Hemorrhage Management; Start 12/30/16 at 15:00 Carboprost Tromethamine (Hemabate) 250 mcg ONCE PRN IM VAGINAL BLEEDING; Start 12/30/16 at 15:00 Misoprostol (Cytotec) 1,000 mcg ONCE PRN [place] VAGINAL BLEEDING; Start 12/30/16 at 15:00 Prenat Multivit/ Section Leader/Iron/Folic Ac ( S) 1 tab DAILY PO Last administered on 12/31/16 09:09; Admin Dose 1 TAB; Start 12/31/16 at 09:00 DAYANNA LYNN MD December 31, 2016 18:45
[2017-01-01 04:00] VITALS: BP 136/67; PULSE 84; RESP 18
[2017-01-01] MEDS: IBUPROFEN 800 MG TAB PO SCH ×3 (05:56→21:51)
[2017-01-01] MEDS: MULTIVIT/MIN/FOLATE/IRON/PREN TAB PO SCH (08:44)
[2017-01-01 08:45] VITALS: BP 112/77; PULSE 69; RESP 19
--- NOTE | 2017-01-01 10:33 | PN ---
Date/Time of Note Date/Time of Note DATE: 01/01/17 TIME: 10:32 OB Subjective Subjective Subjective Post day 2 Afebrile vital signs stable blood pressure running within normal range her abdomen is soft bowel sounds. She had normal bowel movement plan of a.m. discharge discussed with the patient CHRIS MA MD January 01, 2017 10:33
[2017-01-01 10:37] LABS: ALBUMIN 2.6 g/dl (3.3-4.9); ALBUMIN/GLOBULIN RATIO 0.89; CALCIUM 7.8 mg/dl (8.4-10.2); CREATININE 0.59 mg/dl (0.44-1.00); POTASSIUM 4.1 mmol/L (3.5-5.1); TOTAL PROTEIN 5.5 g/dl (6.1-8.1)
--- NOTE | 2017-01-01 12:39 | CONS ---
DATE OF ADMISSION: 12/28/2016 DATE OF CONSULTATION: 12/30/2016 HISTORY OF PRESENT ILLNESS: The patient was admitted on with elevated blood pressure. She has a history of a chronic hypertension with a baseline 24-hour urine for protein of 770 grams. At the time of presentation, she has occasional severe range blood pressures. However, she has no evidenc e of headache apparently, chest pain, shortness of breath, or left upper quadrant pain. She had elidia ateral extremity edema. She was subsequently started on magnesium sulfate; however, betamethasone was not given by the admit [facility] physician until 2 days after the admission, Friday at 4 p.m. she received first dose of be tamethasone. Perinatology was not consulted until this morning. When I received the consultation, I was told that the patient has had some headache and blurry visio n. Also, I was told that the 36 hours prior, her urine output has been overall less than 50 mL an h our. PAST MEDICAL HISTORY: Chronic hypertension, was placed on medication, labetalol 100 mg twice a day, about 2 weeks ago. PAST SURGICAL HISTORY: Not significant. REVIEW OF SYSTEMS: All systems reviewed. They are negative except for what is mentioned above. PHYSICAL EXAMINATION: VITAL SIGNS: Currently blood pressure is 142/73 mmHg. HEART: Regular heart rate and rhythm. LUNGS: Clear bilaterally. ABDOMEN: Gravid and nontender. EXTREMITIES: There is 3+ bilateral lower extremity edema and some increased reflexes, patellar. LABORATORY VALUES: Creatinine, AST, ALT, platelets are normal. Urine output less than 50 mL an hour for the past 36 hours; however, for the past 2 hours it has inc reased to about 75 mL an hour. heart tone is overall reassuring. She has no contractions. The 24-hour urine protein for this was repeated, and it showed protein in urine to be over 4400 gram s. IMPRESSION: Intrauterine at 33 weeks and 2 days with severe superimposed preeclampsia and neurologic symptoms, currently on magnesium sulfate. The dose has been reduced to 1 gram an hour b ecause of the urine output, the last magnesium level at 6 a.m., essentially 4 hours prior to having a headache and was at 4.6. heart tone is reassuring. RECOMMENDATIONS: Delivery is recommended as soon as possible given severe superimposed preeclampsia with neurologic symptoms. I do recommend judicial administration of IV fluid as she is at increased risk of pulmonary edema. After delivery, magnesium sulfate should be started; however, every 2 hours mag level should be obta ined for at least 6 hours, and if then her urine output increases and magnesium levels remain under the therapeutic levels, then mag level should be increased to 2 gram an hour should be continued for 24 hours or until the patient diureses. I spoke to anesthesia and advised against severe hydration again because of the risk of pulmonary ed tisha. NICU is consulted and they will be available at the time of delivery. I spoke to the patient, the father of the baby, and the patient's mother in detail and answered all their questions. I also spoke to the primary physician. Dictated By: BRITNEY SEGOVIA/MAYI Conf#: [id number] DID#: [id number]
[2017-01-01 15:10] VITALS: BP 129/77; PULSE 82; RESP 18
[2017-01-01] MEDS: ACETAMINOPHEN/CODEINE #3 TAB PO PRN (18:13)
[2017-01-01 19:45] VITALS: BP 134/81; PULSE 78; RESP 18
[2017-01-02 05:00] VITALS: BP 135/85; PULSE 72; RESP 16
[2017-01-02] MEDS: IBUPROFEN 800 MG TAB PO SCH (05:57)
[2017-01-02 07:51] VITALS: BP 136/89; PULSE 83; RESP 20
[2017-01-02] MEDS: MULTIVIT/MIN/FOLATE/IRON/PREN TAB PO SCH (09:59)
--- NOTE | 2017-01-03 13:09 | DS ---
Date/Time of Note Date/Time of Note DATE: 01/03/17 TIME: 13:03 Discharge Summary Admission/Discharge Info Admit Date/Time December 28, 2016 at 22:25 Discharge Date/Time January 02, 2017 at 14:25 Final Diagnosis 33 weeks4/7. Day complicated with severe preeclampsia underwent a C- section Patient Condition: Good Procedures Primary Hx of Present Illness 33 weeks 4 days complicated with..preeclampsia Hospital Course Satisfactory Home Meds Reported Medications Ferrous Sulfate (Iron) 134 Mg Tablet, 134 MG PO DAILY, TAB 12/28/16 Multivit/Min/Fol Ac/Iron/Pren* ( S*) 1 Tab Tab, 1 TAB PO DAILY, TAB 12/28/16 Follow-up Plan Appointment clinic in 4 to discontinue dez patient discharged home with follow-up instruction and a prescription of analgesic and multivitamin Primary Care Provider Florian Moody Time spent on discharge: < 30 minutes CHRIS MA MD January 03, 2017 13:08
== END 2017-01-02 14:25 | disposition home or self-care (01) | DRG 766 ==
LOC: OBT 19:34 → L-D 19:35 → SDS 20:09 → L-D 20:12 → OBT 22:25 → L-D 12-30 11:00 → PP1 12-30 14:33
PROVIDERS: ADMIT Obstetrics & Gynecology; ATTEND Obstetrics & Gynecology
PROC: 10D00Z1 Extraction of Products of Conception, Low, Open Approach (ICD-10-PCS; principal; 2016-12-30 10:30)
DX: O60.14X0 Preterm labor third trimester with preterm delivery third trimester, not applicable or unspecified (principal); O14.14 Severe pre-eclampsia complicating childbirth; Z3A.33 33 weeks gestation of pregnancy; Z37.0 Single live birth
CPT/HCPCS: 36415; 36600; 76815; 76818; 80053; 81001; 81003; 82575; 82803; 83735; 84156; 84560; 85025; 85362; 85384; 85610; 85730; 86592; 86850; 86900; 86901; 87086; 87340; 88307; G0463; J0690; J0702; J1885; J2274; J2405; J2590; J2765; J3010; J3475; J7120